=== PATIENT | male | born 1975 | race Caucasian/White ===

== ENCOUNTER → 2016-08-22 | Day surgery (SDC) | payer BC ==
[~2016-08-22] MED LIST: BENTYL20 MG PO; FLEXERIL10 M1 PO; NEXIUM; VOLTAREN75 MG PO
--- NOTE | ~2016-08-22 | OR ---
Unit #: [id number] #: [id number] Patient: KELSEY ACEVES [id number] [address] [address] [id number] O MR#: [id number] NAME: KELSEY ACEVES ROOM: Date of Procedure: 08/22/2016 Admission Date: 08/22/2016 Surgeon: Jonathan Serrano M.D. : 1975 Attending Physician: Jonathan Serrano M.D. Primary Care Physician: Saul Mcneil M.D. OPERATIVE REPORT PREOPERATIVE DIAGNOSES 1. Screening colonoscopy. 2. Father with colon cancer at early age. POSTOPERATIVE DIAGNOSES 1. Screening colonoscopy. 2. Father with colon cancer at early age. PROCEDURES PERFORMED 1. Colonoscopy to cecum. 2. Excision of a 5 mm cecal polyp with electrocautery snare. 3. Excision of ascending colon polyp x2 with electrocautery snare with submucosal tattoo. 4. Excision of polyp at 65 cm with electrocautery snare with hemoclip placement. 5. Excision of polyp with electrocautery snare at 45 cm. 6. Excision of polyp at 10 cm with electrocautery snare. ANESTHESIA Monitored anesthesia care. 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 He was found to have a 5 mm cecal polyp that was excised completely with electrocautery snare with good hemostasis. In the mid ascending colon, there was a 5 mm polyp and a 1 cm polyp, each excised with electrocautery snare with good hemostasis and the 1 cm polyp site was submucosally tattooed. At 65 cm, a 5 mm polyp was excised with electrocautery snare with good hemostasis and a hemoclip was placed. Another 5 mm polyp was excised at 45 cm with electrocautery snare with good hemostasis and a 5 mm polyp was excised at 10 cm with electrocautery snare with good hemostasis. SPECIMENS Sent to pathology. COMPLICATIONS None apparent. CONDITION The patient tolerated the procedure well. Unit #: [id number] #: [id number] Patient: KELSEY ACEVES INDICATIONS FOR PROCEDURE The patient is a 41-year-old white male, whose father had colon cancer in his early 50s. He presents at this time for screening colonoscopy. DESCRIPTION OF PROCEDURE After obtaining an informed consent, the patient was brought to the endoscopy suite and after adequate monitored anesthesia care, had the colonoscope placed through the anus and slowly advanced to the level of the cecum without difficulty with lumen always in view. The cecum was normal as was the ileocecal valve, other than a small 5 mm polyp. It was excised completely with good hemostasis with electrocautery snare, retrieved, and sent to pathology. There was scattered duque-diverticular disease present throughout the colon. In the mid ascending colon, there was a 5 mm polyp and an adjacent 1 cm polyp. Each was excised with electrocautery snare with good hemostasis, retrieved with a mucus trap, and sent to pathology. The 1 cm polyp was submucosally tattooed with ink spot. The remaining ascending colon, hepatic flexure, and majority of the transverse colon was normal. In the distal transverse colon, at 65 cm, a 5 mm polyp was present. It was excised completely with electrocautery snare, retrieved with a mucus trap, and sent to pathology. There was good hemostasis at the site, but a hemoclip was placed to ensure good hemostasis. The splenic flexure was normal as was the proximal descending colon other than diverticular disease. At 45 cm, a 5 mm polyp was found. It was excised completely with electrocautery snare, retrieved with a mucus trap, and sent to pathology. The remaining portion of the descending colon, sigmoid colon and rectosigmoid areas were all normal. In the rectum, there was a 5 mm polyp found. It was excised completely with electrocautery snare, retrieved with a mucus trap, and sent to pathology. On retroflexing in the rectum to the anorectal junction, there were some mild internal hemorrhoids seen. The scope was removed without difficulty. On digital examination, there was good sphincter tone. No masses palpable. The patient tolerated the procedure well and went from the endoscopy to the recovery area in stable condition. RECOMMENDATIONS High-fiber diet, lots of liquids, tucks or wipes p.r.n. Diverticular sheet given. Call Thursday for pathology. The patient should have a repeat colonoscopy in 1 year's time. Dictated by... Ainsley Dorantes/aida TD: 08/22/2016 08:57 JOB #: [id number] CC: [facility] Unit #: [id number] #: [id number] Patient: KELSEY ACEVES OPERATIVE REPORT Page 1 of 1 X Jonathan Serrano MD PROCEDURE OPERATIVE NOTE
== END | disposition home or self-care (01) ==
LOC: COPS 05:52
DX: Z12.11 Encounter for screening for malignant neoplasm of colon (principal); D12.0 Benign neoplasm of cecum; D12.2 Benign neoplasm of ascending colon; D12.4 Benign neoplasm of descending colon; K62.1 Rectal polyp; K57.30 Diverticulosis of large intestine without perforation or abscess without bleeding; K64.8 Other hemorrhoids; Z80.0 Family history of malignant neoplasm of digestive organs
CPT/HCPCS: 88305; J2250

== ENCOUNTER → 2016-08-29 | Outpatient (CLI) | payer BC ==
--- NOTE | ~2016-08-29 | CT55 ---
[facility] A Service of [facility] RADIOLOGY TEXT RESULTS PATIENT: KELSEY ACEVES LOCATION: [facility] : 77 UNIT #: [id number] AGE: [address]: Alia Yi SEX: M ORDER DR: [id number] [place] [id number] O MR#: [id number] Acc #: [id number] NAME: KELSEY ACEVES : 1975 SEX: M STUDY DATE/TIME: 08/29/2016 8:14 UNIT: [facility] ROOM: STUDY DESCRIPTION: CT Chest W Con Attending Physician: Alia Yi A.P.R.N. Referring Physician: Alia Yi A.P.R.N. Ordering Physician: Alia Yi A.P.R.N. Primary Care Physician: Saul Mcneil M.D. MEDICAL IMAGING REPORT This report is preliminary unless electronic signature is present. EXAM CT of the chest with contrast. INDICATION Abnormal chest x-ray 1 month ago. Follow up. History of smoking. TECHNIQUE CT of the chest was performed following the administration of IV contrast. Coronal and sagittal reformatted images are obtained. This CT exam was performed with one or more of the following radiation dose reduction techniques: automatic exposure control, adjustment of mA and/or kV according to patient size, and iterative reconstruction. COMPARISON STUDIES Comparison with chest x-ray from 06/20/2016. FINDINGS There is no suspicious pulmonary nodule or mass. There is no airspace consolidation or interstitial abnormality. No lymphadenopathy or pleural effusion. There is mild dilatation of the ascending aorta measuring about 4.4 cm in greatest dimension. Limited imaging in the upper abdomen is unremarkable. Bone windows are unremarkable. IMPRESSION Mild dilatation of the ascending aorta measuring 4.3-4.4 cm in greatest dimension. The exam is otherwise unremarkable. Dictated by... Dg Person M.D. [facility] A Service [facility] RADIOLOGY TEXT RESULTS PATIENT: KELSEY ACEVES LOCATION: [facility] : 77 UNIT #: [id number] AGE: [address]: Alia Yi SEX: M ORDER DR: THIS IS AN ELECTRONICALLY VERIFIED REPORT Dg Person M.D. at 08/29/2016 4:05 PM Levar TD: 08/29/2016 14:13 JOB #: [id number] MEDICAL IMAGING REPORT Page 1 of 1
== END | disposition home or self-care (01) ==
LOC: SCT 08:08
DX: R93.8 Abnormal findings on diagnostic imaging of other specified body structures (principal); I77.810 Thoracic aortic ectasia
CPT/HCPCS: 71260; Q9967